=== PATIENT | female | born 1955 | race Caucasian/White ===

== ENCOUNTER → 2018-11-13 | Outpatient (CLI) | payer BC ==
[~2018-11-13] MED LIST: ACIPHEX; ALBU8.5H2 IH; ASP81TEC PO; BUDE10.22 IH; CALC-722 PO; CEFD300C3 PO; CHOL100011 PO; CHOL2000 PO; CLCX200C; ETAN50PE SQ; INDERAL LA; INDLA120 PO; LEVO137T24 PO; LEVO175T2; LRZ1T; MICARDIS; OMEP40CA36 PO; POTASSIUM GLUC PO; PRD10T PO; PROP10TA8 PO; PROP160C2 PO; SUCR1TAB PO; [UNRECOGNIZED DRUG - CODE] SQ; omeprozole PO; prednisone
--- NOTE | 2018-11-13 11:53 | Diagnostic Imaging Report ---
INDICATION: Low back pain. TIME OF EXAM: 11:32 AM FINDINGS: Three views of the lumbar spine were obtained. Curvature and alignment is normal. Vertebral body heights are maintained. No acute compression fracture is seen. There is generalized lumbar spondylosis with variable disc space narrowing and marginal spurring. This is greatest at L5-S1. Aorta is calcified. IMPRESSION: Lumbar spondylosis. No acute bony abnormality is detected. Dictated by: Dictated on workstation # [id number]
--- NOTE | 2018-11-13 11:54 | Diagnostic Imaging Report ---
INDICATION: Low back pain and painful bowel movements. TIME OF EXAM: 11:31 a.m. FINDINGS: Bowel gas pattern is nonobstructive. No significant stool load is seen. No pathologic calcifications are seen. IMPRESSION: No acute abnormality is detected. Dictated by: Dictated on workstation # [id number]
== END ==
LOC: RAD 11:18
PROVIDERS: ATTEND Family Medicine
DX: M47.816 Spondylosis without myelopathy or radiculopathy, lumbar region (principal); K59.00 Constipation, unspecified
CPT/HCPCS: 72100; 74018

== ENCOUNTER → 2018-11-18 | Outpatient (CLI) | payer BC ==
[2018-11-18 13:25] LABS: BILIRUBIN,URINE NEGATIVE (NEGATIVE); CLARITY,URINE CLEAR; COLOR,URINE YELLOW; GLUCOSE, URINE (UA) NEGATIVE (NEGATIVE); KETONES,URINE NEGATIVE (NEGATIVE); LEUKOCYTE ESTERASE ,URINE 1+ (NEGATIVE); NITRITE,URINE NEGATIVE (NEGATIVE); PH,URINE 5 (5-9); PROTEIN,URINE NEGATIVE (NEGATIVE); UROBILINOGEN,URINE NORMAL (NORMAL)
[2018-11-18 13:32] LABS: BACTERIA,URINE FEW /HPF; SQUAMOUS EPITHELIAL CELL,UR 25-50 /HPF; WBC,URINE 0-2 /HPF
--- NOTE | 2018-11-19 13:47 | Physician Query-Final Dx ---
HUANG STARR 11/19/18 1347: Clinic Account Progress/Dx Physician Query: Please specify the location of the patients abdominal pain thank you Date of Service Nov 18, 2018 at 13:07 SHANIA WHITLOCK MD 11/19/18 1503: Clinic Account Progress/Dx DIAGNOSIS: Diagnosis diffuse abdominal pain left lower quadrant right lower quadrant mid abdomen pain HUANG STARR Nov 19, 2018 13:47 SHANIA WHITLOCK MD Nov 19, 2018 15:03
== END ==
LOC: LAB 13:07
PROVIDERS: ATTEND Family Medicine
DX: R10.84 Generalized abdominal pain (principal)
CPT/HCPCS: 81000

== ENCOUNTER → 2018-11-20 | Outpatient (CLI) | payer BC ==
--- NOTE | 2018-11-20 16:32 | Diagnostic Imaging Report ---
EXAM: Nuclear medicine bone scan of the chest and thoracolumbar spine with SPECT CT imaging. DATE: November 20, 2018. INDICATION: 63-year-old female with bilateral anterior rib pain for two years. COMPARISON: CT chest, abdomen and pelvis, January 132015. Lumbar spine radiographs November 13, 2018. TECHNIQUE: 26.8 mCi of technetium labeled MDP radiotracer was administered. Scintigraphic images at the level of the chest and thoracolumbar spine were obtained. SPECT CT images were also obtained at the level of the chest. FINDINGS: The CT portion of the exam is nondiagnostic for evaluation of rib fractures, bone lesions or other anatomic evaluation and is used primarily for localization purposes. There is radiotracer uptake at the level of L3 diffusely as well as at the level of L5. There is no identified abnormal radiotracer uptake at the level of the thoracic spine or within the right or left-sided ribs. There is radiotracer uptake in the region of the right sternoclavicular joint which is likely arthritic related. IMPRESSION: 1. Radiotracer uptake fairly diffusely noted in the L3 and L5 vertebral bodies. This is nonspecific. There is mild concavity of the superior endplate of L3 on recent radiograph suggesting this likely relates to an acute compression deformity. Bone metastasis would be difficult to exclude. There is advanced disc degenerative change at L5-S1 which potentially could relate to the radiotracer uptake at the level of L5 although this is difficult to definitively state. 2. Dedicated MRI of lumbar spine without and with intravenous contrast is recommended for further overall assessment. 3. No identified abnormal radiotracer uptake within the right or left side ribs. Dictated by: Dictated on workstation # [id number]
== END ==
LOC: CARD 09:41
PROVIDERS: ATTEND Internal Medicine Gastroenterology
DX: R07.9 Chest pain, unspecified (principal)
CPT/HCPCS: 78320

== ENCOUNTER → 2018-12-11 | Outpatient (CLI) | payer BC ==
[~2018-12-11] MED LIST changes: +GADOBUTROL 10 MMOL/10 ML (GADAVIST) VIAL IV ONE
[2018-12-11 09:20] LABS: BUN/CREATININE RATIO 14; CARBON DIOXIDE 22 MMOL/L (21-32); CHLORIDE 106 MMOL/L (98-107); CREATININE SERUM 0.78 MG/DL (0.60-1.30); GFR ESTIMATED > 60; GLUCOSE 103 MG/DL (70-105); SODIUM 136 MMOL/L (135-145)
--- NOTE | 2018-12-11 10:33 | Diagnostic Imaging Report ---
PROCEDURE: MRI lumbar spine with and without contrast. TECHNIQUE: Multiplanar, multisequence MRI of the lumbar spine was performed with and without contrast. INDICATION: Low back pain. There are no previous MRI examinations available for comparison. FINDINGS: The plain film examination of lumbar spine performed on 11/13/2018 failed to show any sign of an acute bony abnormality. There was fairly severe degenerative disc and bony disease at L5-S1. There also appear to be a mild long-standing compression deformity of the superior endplate of L5. On this exam, there is desiccation and narrowing of the disc at the L5-S1 level. However, the thecal sac at this level is generous and the AP diameter measures 14.5 MM. There does not appear to be any significant neural foraminal narrowing at this level either. There is a slight disc bulge at the L4-L5 level. The AP diameter of thecal sac is narrowed to approximately 11.5 MM. There is no significant neural foraminal narrowing at this level either. The remainder of the lumbar spine is unremarkable for spinal stenosis or nerve root encroachment. There is no abnormal signal arising from the osseous structures to suggest bone edema or fracture. There is a long-standing 10-20% compression deformity of the superior endplate of L5. There also appears to be a similar chronic compression deformity of L3. There is no sign of a cord lesion. There is no paraspinal mass visualized. IMPRESSION: 1. There is degenerative disc disease at L5-S1. There is no evidence for spinal stenosis or nerve root encroachment at this level, however. 2. The remainder of the lumbar spine is also unremarkable for spinal stenosis or nerve root encroachment. 3. There are mild long-standing compression deformities of superior endplates of L3 and L5. There is no acute bony abnormality noted. There is no sign of a cord lesion either. Dictated by: Dictated on workstation # [id number]
--- NOTE | 2018-12-11 12:19 | Diagnostic Imaging Report ---
INDICATION: Screening. EXAMINATION: Digital mammogram bilateral screening with 3-D tomosynthesis. The current study was also evaluated with a Computer Aided Detection (CAD) system. This study was compared to prior exam of 04/13/2015. At this time, there are no current complaints. FINDINGS: The fibroglandular tissue in both breasts is heterogeneously dense. This does limit the sensitivity of this exam. Overall, there does not appear to have been any significant change when compared to the prior study. No primary or secondary sign of malignancy is noted. IMPRESSION: 1. There is no radiographic evidence for malignancy. 2. The patient should have her annual bilateral screening mammogram on schedule in December of 2019. ACR BI-RADS Category 1: Negative. Result letter will be mailed to the patient. Note: At least 10% of breast cancer is not imaged by mammography. Dictated by: Dictated on workstation # [id number]
== END ==
LOC: RAD 08:53
PROVIDERS: ATTEND Family Medicine
DX: Z12.31 Encounter for screening mammogram for malignant neoplasm of breast (principal); M51.17 Intervertebral disc disorders with radiculopathy, lumbosacral region; M43.8X6 Other specified deforming dorsopathies, lumbar region
CPT/HCPCS: 36415; 72158; 77067; 80048